=== PATIENT | female | born 2005 | race Hispanic/Latino ===

== ENCOUNTER 2024-02-02 00:24 | Emergency (ER) | payer SELFPAY ==
[~2024-02-02] VITALS: Ht 160 cm; Wt 99.8 kg
--- NOTE | 2024-02-02 00:30 | NUR ---
[facility] PROVIDED COVID, FLU AND STREP SWABS COLLECTED AND SENT FOR ANY FURTHER ORDERS
[2024-02-02 01:08] LABS: RAPID GROUP A STREP negative (NEGATIVE)
[2024-02-02 01:15] LABS: SARS-CoV-2, RNA, NAAT NEGATIVE SARS CoV-2 (NEGATIVE)
[2024-02-02 01:19] LABS: INFLUENZA TYPE A Negative For Type A (NEGATIVE); INFLUENZA TYPE B Negative For Type B (NEGATIVE)
[2024-02-02 01:28] LABS: ADD UA MICROSCOPIC YES; APPEARANCE,URINE CLEAR (CLEAR); BILIRUBIN,URINE NEGATIVE (NEGATIVE); COLOR,URINE YELLOW (YELLOW); GLUCOSE, URINE (UA) NEGATIVE (NEGATIVE); KETONES,URINE 5 mg/dL (NEGATIVE); LEUKOCYTE ESTERASE ,URINE 250 Leu/uL (NEGATIVE); NITRATE,URINE NEGATIVE (NEGATIVE); OCCULT BLOOD,URINE NEGATIVE (NEGATIVE); PH,URINE 6.5 (5.0-8.0); PROTEIN,URINE 20 mg/dL (NEGATIVE)
[2024-02-02 01:29] LABS: HCG,QUALITATIVE URINE POSITIVE (NEGATIVE)
[2024-02-02 01:30] LABS: MUCUS,URINE RARE LPF (None Seen); SQUAMOUS EPITHELIAL CELL,UR FEW /HPF (0-2)
[2024-02-02] MEDS ORDERED: CEPH500B PO (01:39)
--- NOTE | 2024-02-02 01:40 | ERN ---
ED Note History of Present Illness Stated Complaint: SORE THROAT, BODYACHE Chief Complaint: Sore Throat Time Seen by MD: 00:31 Time Seen by Midlevel: 00:36 Dictation: 18-year-old female with no past medical history coming in with complaints of body aches, headache, or sore throat and low-grade fever onset two days ago. Patient also states she found out last week that she was . LMP and was not [place] but she is irregular. . No complaints. Denies any vaginal bleeding, vaginal discharge, dysuria, hematuria, nausea, vomiting, diarrhea. Allergies: Coded Allergies: No Known Allergies (Unverified Allergy, Unknown, 02/02/24) Home Meds Active Scripts Cephalexin Monohydrate (Keflex) 500 Mg Cap, 500 MG PO QID for 7 Days, #28 CAP Prov:AICHA ELIZONDO [employer] 02/02/24 Past Medical History Past Medical History: No Pertinent History Surgical History: None LMP: Oct 25, 2023 : 1 Review of System Dictation Constitutional: Positive for chills and body aches Eyes: Negative for injury, pain,redness, and discharge ENT: Complaining of sore throat Cardiovascular: Negative for chest pain, palpitations, and edema Respiratory: Negative for shortness of breath, cough, and wheezing, Abdomen/GI: Negative for abdominal pain, nausea, vomiting, diarrhea, and constipation Back: Negative for injury and pain : Negative for injury, bleeding and discharge MS/Extremity: Negative for injury and deformity Skin: Negative for rash, and discoloration Neuro: Negative for headache, weakness, numbness, tingling, and seizure Psych: Negative for suicide ideation, homicidal ideation, and hallucinations Review of Systems: was completed Initial Vital Sign VS Vital Signs Date Time Temp Pulse Resp B/P (MAP) Pulse Ox O2 Delivery O2 Flow Rate FiO2 02/02/24 00:26 97.3 93 18 133/64 100 Room Air 02/02/24 01:51 0 21 Physical Exam Dictation General: awake, alert, NAD Head/Face: Normocephalic, atraumatic Eyes: PERRL, EOMI, vision at baseline ENT: oral cavity clear, TMs clear, no signs of infection Neck: Trachea midline, supple, no nuchal rigidity Cardiovascular: RRR, normal S1/S2, No MRGs, no JVD Respiratory: CTAB, no respiratory distress, No rales or wheezes Abdomen: Soft, non-tender, non-distended, normal bowel sounds, no guarding or rebound. Skin: Warm, dry, normal turgor, no rash MS/Extremity: Pulses equal, no cyanosis, neurovascular intact, FROM Neuro: COAx4, GCS 15, strength 5/5, CN 2-12 intact, normal cerebellar exam, normal gait, Psych: Normal behavior, mood, and affect normal Results (Laboratory/Radiology) Laboratory/Radiology Laboratory Tests Test 02/02/24 00:35 02/02/24 01:13 Influenza Type A Antigen Negative For Type A Influenza Type B Antigen Negative For Type B SARS-CoV-2, RNA, NAAT NEGATIVE SARS CoV-2 Group A Streptococcus Rapid negative (NEGATIVE) Urine Color YELLOW (YELLOW) Urine Appearance CLEAR (CLEAR) Urine pH 6.5 (5.0-8.0) Urine Specific [place] 1.035 (1.001-1.031) Urine Protein 20 mg/dL (NEGATIVE) H Urine Glucose (UA) NEGATIVE mg/dL (NEGATIVE) Urine Ketones 5 mg/dL (NEGATIVE) H Urine Occult Blood NEGATIVE (NEGATIVE) Urine Nitrate NEGATIVE (NEGATIVE) Urine Bilirubin NEGATIVE mg/dL (NEGATIVE) Urine Urobilinogen 2.0 mg/dL (0.2-1.0) H Urine Leukocyte Esterase 250 Taye/uL (NEGATIVE) H Urine RBC 2-5 /HPF (0-1) H Urine WBC 11-25 /HPF (0-1) H Urine Squamous Epithelial Cells FEW /HPF (0-2) Urine Bacteria None /HPF (None Seen) Urine HCG, Qualitative POSITIVE (NEGATIVE) H Labs Reviewed?: Yes ED Course ED Course Orders Procedure Category Date Status Time Influenza Type A & B, LAB 02/02/24 Complete Rapid 00:48 Covid Rna Naat LAB 02/02/24 Complete 00:48 Rapid (Group A Strep) LAB 02/02/24 Complete 00:48 Urinalysis Profile LAB 02/02/24 Complete 00:48 ,Urine Test LAB 02/02/24 Complete 00:48 Culture Urine ASTER 02/02/24 In Process 01:28 Ceftriaxone 1g Vial PHA 02/02/24 Complete (Rocephine 1g Inj) 02:00 Current Medications Medications (Trade) Dose Ordered Sig/Fran Route PRN Reason Start Time Stop Time Status Last Admin Dose Admin Ceftriaxone Sodium (ROCEphine 1G INJ) 1 gm ONCE ONCE IM 02/02/24 02:00 02/02/24 02:01 DC 02/02/24 01:52 Vital Signs Date Time Temp Pulse Resp B/P (MAP) Pulse Ox O2 Delivery O2 Flow Rate FiO2 02/02/24 01:51 97.9 87 20 132/64 99 Room Air* 0 21 02/02/24 00:26 97.3 93 18 133/64 100 Room Air Medical Decision Making MDM MDM: 18-year-old female with no past medical history coming in with complaints of body aches, headache, or sore throat and low-grade fever onset two days ago. Patient also states she found out last week that she was . LMP and was not [place] but she is irregular. . No complaints. Denies any vaginal bleeding, vaginal discharge, dysuria, hematuria, nausea, vomiting, diarrhea. Labs show mild urinary tract infection, Rocephin given in the ER and we will discharge her with antibiotics. Serology negative for influenza, COVID, strep. Discussed findings with patient. Educated patient she is to follow up with her OBGYN as soon as possible, take [id number] medication like Tylenol for body aches and fever. Patient verbalized understanding, answered all questions. Differential diagnosis: Influenza, COVID, viral syndrome Rationale: Tests considered and ordered secondary to shared decision making include: Previous outside records reviewed: Old ER visits. Risk of complication and/or morbidity or mortality of patient management: None Medications-Per medication reconciliation Need for hospitalization: Patient does not meet criteria for hospitalization. Need for emergency major/minor surgery: No There are no social concerns with this patient. Prescription drug management Prescriptions will include symptomatic care Patient's prior external medical records from other ER visits were reviewed by me as indicated. Prior testing and results from previous visits were reviewed. Prior tests were taken into account with medical decision making and resource utilization, independent historian/historians were used to obtain complete medical history. I independently interpreted the test that were performed, results were reviewed by me and considered findings on radiology if ordered. Medical management and examination interpretation discussions were had by me with other qualified healthcare professionals as indicated for the patient's care. DX & DISP Disposition: Discharge Departure Impression: Primary Impression: Urinary tract infection Additional Impressions: Viral syndrome, Condition: Stable Scripts Cephalexin Monohydrate (Keflex) 500 Mg Cap 500 MG PO QID for 7 Days, #28 CAP Prov: AICHA ELIZONDO NP 02/02/24 Additional Instructions: Follow up with the OBGYN as soon as possible, complete antibiotics. You can take Tylenol [id number] to help with your body aches, headache, and fever. Return to the ER if symptoms worsen. Referrals: SELF,REFERRAL (PCP) Time of Disposition: 01:39 I have reviewed the case, and I agree with, Diagnosis and Plan ATTESTATION BY PHYSICIAN I PERFORMED THE SUBSTANTIVE PORTION OF THE VISIT. I HAVE REVIEWED AND PERSONALLY MADE AND APPROVED THE MANAGEMENT PLAN THAT IS DOCUMENTED IN THE NOTE BY MYSELF FOR THE A PP. I ACKNOWLEDGED FOR RESPONSIBILITY FOR THE PATIENT'S MANAGEMENT PLAN. AICHA ELIZONDO NP Feb 02, 2024 01:40 MIKIE RAO MD Feb 02, 2024 06:36
[2024-02-02 01:51] VITALS: BP 132/64; PULSE 87; RESP 20; TEMP 97.9; O2SAT 99
[2024-02-02] MEDS: cefTRIAXone 1G VIAL IM ONE (01:52)
== END 2024-02-02 02:13 | disposition home or self-care (01) ==
LOC: EDH 00:24
DX: O23.42 Unspecified infection of urinary tract in pregnancy, second trimester (principal); N39.0 Urinary tract infection, site not specified; O98.512 Other viral diseases complicating pregnancy, second trimester; B34.9 Viral infection, unspecified; Z3A.14 14 weeks gestation of pregnancy; Z20.822 Contact with and (suspected) exposure to COVID-19
CPT/HCPCS: 99283; 87635; 87086; 87880; 87804 ×2; 81001; 81025; 96372; J0696